=== PATIENT | male | born 2000 | race Caucasian/White ===

== ENCOUNTER 2022-04-30 19:05 | Emergency (ER) | payer BC ==
[~2022-04-30] VITALS: Ht 180.3 cm; Wt 72.7 kg
[2022-04-30 19:38] VITALS: TEMP 97.5
[2022-04-30] MEDS ORDERED: ALBUTEROL S0.4 MG/ML (19:38)
[2022-04-30] MEDS ORDERED: AMOXICILLIN 8751 TAB PO (20:07)
[2022-04-30 20:22] VITALS: BP 136/90; PULSE 74
== END 2022-04-30 20:22 | disposition home or self-care (01) ==
LOC: COL.ER 19:05
DX: S51.822A Laceration with foreign body of left forearm, initial encounter (principal); S50.312A Abrasion of left elbow, initial encounter; Z28.310 Unvaccinated for COVID-19; W26.8XXA Contact with other sharp object(s), not elsewhere classified, initial encounter